=== PATIENT | male | born 1945 | race Caucasian/White ===

== ENCOUNTER 2017-01-20 19:14 | Emergency (ER) | payer OTHER ==
[2017-01-20 19:20] VITALS: TEMP 97.7; O2SAT 93
--- NOTE | 2017-01-20 19:49 | EDPHY ---
H & P Stated Complaint: Hyperglycemia Time Seen by Provider: 01/20/17 19:47 HPI/ROS: CHIEF COMPLAINT: Lethargy, hyperglycemia HISTORY OF PRESENT ILLNESS: The patient is a 71 y/o male, with a history of type 1 diabetes diagnosed when he was 59 years old, arriving with his complaining of lethargy and hyperglycemia. He describes feeling normal through an active morning at work. Around noon he began to feel off. He noticed significant thirst and fatigue that came on rapidly. He did not eat through the afternoon, drank a lot of water, and continued to measure his BGL over 300 and as high as 428 despite increasing his insulin dose. His target BGL is 100. His insulin pump maintains a basal insulin rate and he boluses Humalog insulin with meals based upon his blood sugar readings. Since noon he's administered multiple insulin boluses (10.1, 2.5, 6.9, 2.7, 6, 4) for a total of 32.2 units. He began to notice a sore throat and went to urgent care for evaluation of possible infection (he was exposed to strep throat this week). He had a negative strep test and was referred to the ED. His notes a fruity smell on his breath this afternoon. He works hard to manage his diabetes and uses an insulin pump. He has never been diagnosed with ketoacidosis. He denies fever, abdominal pain, vomiting, nausea, dyspnea, cough, chest pain, diarrhea, dysuria , polyuria, headaches, new known infections or trauma. REVIEW OF SYSTEMS: A ten point review of systems was performed and is negative with the exception of the items mentioned in the HPI. - Personal History Current Tetanus/Diphtheria Vaccine: Yes Current Tetanus Diphtheria and Acellular Pertussis (TDAP): Yes - Medical/Surgical History PMH: PMH includes: 1. Type 1 diabetes 2. Hypercholesterolemia 3. Hyperthyroidism 4. Remote history of gout Hx Asthma: No Hx Chronic Respiratory Disease: No Hx Diabetes: Yes Hx Cardiac Disease: No Hx Renal Disease: No Hx Cirrhosis: No Hx Alcoholism: No Hx HIV/AIDS: No Hx Splenectomy or Spleen Trauma: No Other PMH: Type 1 Diabetes - Social History Smoking Status: Never smoked Alcohol Use: Occasionally (Two beers daily, maximum intake.) Additional Social History: at bedside. 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 [facility], PCP: Dr. Ward. - Physical Exam Exam: General Appearance: Alert. Vital signs reviewed. Blood pressure 138/72. Eyes: Pupils equal and round, no conjunctival injection, no discharge. Anicteric. ENT, Mouth: Mucous membranes are moist, no oropharyngeal erythema or edema. Neck: No lymphadenopathy, supple. Respiratory: Lungs are clear to auscultation; no wheezes, rales, or rhonchi. Cardiovascular: Regular rate and rhythm; no murmur, rub, or gallop. Gastrointestinal: Abdomen is soft and nontender, no masses or organomegaly, bowel sounds normal. Insulin pump sites clean and dry. Skin: Warm and dry, no rashes on exposed skin, normal color. Back: Nontender to palpation over the thoracolumbar spine. No CVAT. Extremities: No lower extremity edema, no calf tenderness or swelling. Neurological: Alert and oriented. Moving all four extremities easily and equally. MALCOLM. EOMI. Facial expressions symmetric. Tongue midline. Psychiatric: Normal affect. Constitutional: Initial Vital Signs Temperature (C) 36.5 C 01/20/17 19:18 Heart Rate 88 01/20/17 19:18 Respiratory Rate 14 01/20/17 19:18 Blood Pressure 138/72 H 01/20/17 19:18 O2 Sat (%) 93 01/20/17 19:18 O2 Delivery Mode Room Air Allergies/Adverse Reactions: No Known Allergies Allergy (Unverified 01/20/17 19:17) Medical Decision Making ED Course/Re-evaluation: IV established. Labs drawn including CBC, CHEM, serum ketone. UA ordered. 1L IV NS administered. BGL is 359, UA is positive for ketones and glucose. Beta hydroxybutyrate elevated at 2.29. Sodium is slightly low 130. CO2 is low at 17, however there is no anion gap. His blood sugars continue to be between 300 to 350 in the emergency department. I spoke with Dr. Dickson, hospitalist. We have considered the possibility that; the patient's pump is not working. He changed sites on Tuesday, 2 days ago. It was working well yesterday, as best the patient can determine. However it is possible that there is a kink or scar tissue or something causing the insulin not to be appropriately injected. In discussion with the patient, it is decided that he will receive an IV bolus of 4 units regular insulin for a blood sugar of 250, obtained at 9:45 p.m.. His blood sugar will be rechecked in an hour and if it is appropriately declining he is comfortable returning home. He will change the sites for his pump in see how things go. If he continues to have trouble controlling his BS or if he develops signs of infection he will return. The patient is feeling fine at this time. He is comfortable with this plan. If his blood sugar is not decreasing he will be admitted overnight. He is receiving a 2nd L of IV fluid. Differential Diagnosis: I considered a differential diagnosis that includes but is not limited to malfunction of insulin pump, diabetic ketoacidosis, hyperglycemia without acidosis, and infection. - Data Points Laboratory Results: Laboratory Results 01/20/17 19:54 01/20/17 19:54 01/20/17 01/20/17 01/20/17 Unknown Unknown 20:20 WBC RBC Hgb POC Hgb Hct POC Hct MCV MCH MCHC RDW Plt Count MPV Neut % (Auto) Lymph % (Auto) [place] % (Auto) Eos % (Auto) Baso % (Auto) Nucleat RBC Rel Count Absolute Neuts (auto) Absolute Lymphs (auto) Absolute Monos (auto) Absolute Eos (auto) Absolute Basos (auto) Absolute Nucleated RBC Immature Gran % Immature Gran # POC Sodium Sodium POC Potassium Potassium POC Chloride Chloride Carbon Dioxide Anion Gap POC BUN BUN Creatinine POC Creatinine Estimated GFR Glucose POC Glucose Calcium Phosphorus 4.0 mg/dL mg/dL (2.5-4.5) Magnesium 2.1 mg/dL mg/dL (1.6-2.3) Beta-Hydroxybutyrate 2.29 mmol/L H mmol/L (0.02-0.27) Urine Color PALE YELLOW Urine Appearance CLEAR Urine pH 5.0 (5.0-7.5) Ur Specific [place] 1.024 (1.002-1.030) Urine Protein NEGATIVE (NEGATIVE) Urine Ketones 2+ H (NEGATIVE) Urine Blood NEGATIVE (NEGATIVE) Urine Nitrate NEGATIVE (NEGATIVE) Urine Bilirubin NEGATIVE (NEGATIVE) Urine Urobilinogen NEGATIVE EU EU (0.2-1.0) Ur Leukocyte Esterase NEGATIVE (NEGATIVE) Urine RBC 1-3 /hpf /hpf (0-3) Urine WBC NONE SEEN /hpf /hpf (0-3) Ur Epithelial Cells NONE SEEN /lpf /lpf (NONE-1+) Urine Glucose 3+ H (NEGATIVE) Serum Ketones 01/20/17 01/20/17 01/20/17 19:54 19:54 19:53 WBC 11.13 10^3/uL H 10^3/uL (3.80-9.50) RBC 4.93 10^6/uL 10^6/uL (4.40-6.38) Hgb 16.3 g/dL g/dL (13.7-17.5) POC Hgb 16.3 gm/dL gm/dL (13.7-17.5) Hct 45.1 % % (40.0-51.0) POC Hct 48 % % (40-51) MCV 91.5 fL fL (81.5-99.8) MCH 33.1 pg pg (27.9-34.1) MCHC 36.1 g/dL g/dL (32.4-36.7) RDW 12.7 % % (11.5-15.2) Plt Count 196 10^3/uL 10^3/uL (150-400) MPV 9.7 fL fL (8.7-11.7) Neut % (Auto) 82.3 % H % (39.3-74.2) Lymph % (Auto) 9.1 % L % (15.0-45.0) [place] % (Auto) 7.8 % % (4.5-13.0) Eos % (Auto) 0.1 % L % (0.6-7.6) Baso % (Auto) 0.3 % % (0.3-1.7) Nucleat RBC Rel Count 0.0 % % (0.0-0.2) Absolute Neuts (auto) 9.17 10^3/uL H 10^3/uL (1.70-6.50) Absolute Lymphs (auto) 1.01 10^3/uL 10^3/uL (1.00-3.00) Absolute Monos (auto) 0.87 10^3/uL H 10^3/uL (0.30-0.80) Absolute Eos (auto) 0.01 10^3/uL L 10^3/uL (0.03-0.40) Absolute Basos (auto) 0.03 10^3/uL 10^3/uL (0.02-0.10) Absolute Nucleated RBC 0.00 10^3/uL 10^3/uL (0-0.01) Immature Gran % 0.4 % % (0.0-1.1) Immature Gran # 0.04 10^3/uL 10^3/uL (0.00-0.10) POC Sodium 135 mEq/L mEq/L (134-144) Sodium 130 mEq/L L mEq/L (134-144) POC Potassium 4.6 mEq/L mEq/L (3.3-5.0) Potassium 4.7 mEq/L mEq/L (3.5-5.2) POC Chloride 99 mEq/L mEq/L (97-110) Chloride 99 mEq/L mEq/L (97-110) Carbon Dioxide 17 mEq/l L mEq/l (22-31) Anion Gap 14 mEq/L mEq/L (8-16) POC BUN 27 mg/dL H mg/dL (7-23) BUN 25 mg/dL H mg/dL (7-23) Creatinine 1.1 mg/dL mg/dL (0.7-1.3) POC Creatinine 1.1 mg/dL mg/dL (0.7-1.3) Estimated GFR > 60 Glucose 359 mg/dL H mg/dL (70-100) POC Glucose 356 mg/dL H mg/dL (70-100) Calcium 9.3 mg/dL mg/dL (8.5-10.4) Phosphorus Magnesium Beta-Hydroxybutyrate Urine Color Urine Appearance Urine pH Ur Specific [place] Urine Protein Urine Ketones Urine Blood Urine Nitrate Urine Bilirubin Urine Urobilinogen Ur Leukocyte Esterase Urine RBC Urine WBC Ur Epithelial Cells Urine Glucose Serum Ketones TNP Medications Given: Discontinued Medications Sodium Chloride (Ns) 1,000 mls @ 0 mls/hr IV ONCE ONE; Wide Open PRN Reason: Protocol Stop: 01/20/17 20:39 Last Admin: 01/20/17 20:51 Dose: 1,000 mls Insulin Human Regular (Humulin R) 4 unit IVP EDNOW ONE Stop: 01/20/17 21:53 Last Admin: 01/20/17 22:39 Dose: 4 units Point of Care Test Results: 01/20/17 19:53 POC Sodium 135 POC Potassium 4.6 POC Chloride 99 POC BUN 27 H POC Creatinine 1.1 POC Glucose 356 H Departure - Departure Disposition: Home, Routine, Self-Care Clinical Impression: Hyperglycemia Condition: Good Instructions: Diabetic Hyperglycemia (ED) Additional Instructions: Monitor your BGL and insulin closely, as you always do. Change the sites for your pump, as we discussed. Follow up with your life skills specialist next week. Return to the ED for any worsening of condition--fever, vomiting, abdominal pain , signs of infection, any new or concerning symptoms.. Referrals: Kasandra Ward MD [Primary Care Provider] - As per Instructions Report Scribed for: Ilsa Spain Report Scribed by: [place] Date of Report: 01/20/17 Time of Report: 20:09 Physician Review and Approval Statement: 01/20/17 19:49 Portions of this note were transcribed by the medical asst. I, Dr. Ilsa Spain, personally performed the history, physical exam, and medical decision- making; and confirmed the accuracy of the information in the transcribed note.
[2017-01-20 20:12] LABS: % IMMATURE GRANULYOCYTES 0.4 % (0.0-1.1); ABSOLUTE IMMATURE GRANULOCYTES 0.04 10^3/uL (0.00-0.10); ADD DIFF? NO; ADD MORPH? NO; ADD SCAN? NO; ATYPICAL LYMPHOCYTE FLAG 0 (0-99); FRAGMENT RBC FLAG 0 (0-99); HEMATOCRIT 45.1 % (40.0-51.0); HEMOGLOBIN 16.3 g/dL (13.7-17.5); LEFT SHIFT FLG 10 (0-99); LIPEMIA HEMOLYSIS FLAG 90 (0-99); MEAN CELL HEMOGLOBIN 33.1 pg (27.9-34.1); MEAN CELL HEMOGLOBIN CONCENTR. 36.1 g/dL (32.4-36.7); MEAN CELL VOLUME 91.5 fL (81.5-99.8); MEAN PLATELET VOLUME 9.7 fL (8.7-11.7); PLATELET CLUMPS FLAG 10 (0-99); PLATELET COUNT 196 10^3/uL (150-400); RED BLOOD CELL COUNT 4.93 10^6/uL (4.40-6.38); RED CELL DISTRIBUTION WIDTH 12.7 % (11.5-15.2)
[2017-01-20 20:21] LABS: ANION GAP 14 mEq/L (8-16); CALCIUM 9.3 mg/dL (8.5-10.4); CARBON DIOXIDE 17 mEq/l (22-31); CHLORIDE 99 mEq/L (97-110); CREATININE 1.1 mg/dL (0.7-1.3); GLOMERULAR FILTRATION RATE > 60; GLUCOSE 359 mg/dL (70-100); POTASSIUM 4.7 mEq/L (3.5-5.2); SODIUM 130 mEq/L (134-144)
[2017-01-20 20:29] LABS: COLOR PALE YELLOW; LEUKOCYTE ESTERASE,URINE NEGATIVE (NEGATIVE); NITRITE,URINE NEGATIVE (NEGATIVE)
[2017-01-20 20:33] LABS: WBC,URINE NONE SEEN /hpf (0-3)
[2017-01-20] MEDS ORDERED: NS 1,000 ML IV ONE (20:38)
[2017-01-20 21:45] LABS: MAGNESIUM 2.1 mg/dL (1.6-2.3)
[2017-01-20] MEDS ORDERED: INSULIN REGULAR HUMAN 100 UNIT/ML IVP ONE (21:52)
[2017-01-20 23:25] VITALS: BP 139/76; PULSE 72; RESP 16
== END 2017-01-20 23:25 | disposition home or self-care (01) ==
DX: E10.65 Type 1 diabetes mellitus with hyperglycemia (principal)
CPT/HCPCS: 82947-QW; 96374; J1815

== ENCOUNTER → 2018-06-14 | Outpatient (CLI) | payer OTHER | LOC: FIMAGING 07:45 | PROVIDERS: ATTEND Physician Assistant Medical | DX: R13.10 Dysphagia, unspecified (principal); K44.9 Diaphragmatic hernia without obstruction or gangrene; K21.9 Gastro-esophageal reflux disease without esophagitis ==